=== PATIENT | female | born 1970 | race Caucasian/White ===

== ENCOUNTER 2016-07-21 23:11 | Emergency (ER) | payer MEDICARE, OTHER ==
--- NOTE | 2016-07-21 23:23 | ER Document Report ---
ED Medical Screen (RME) - General Stated Complaint: NAUSEA,VOMITING,ABDOMINAL PAIN Notes: 46-year-old female presents to ED via EMS for nausea vomiting no diarrhea for the past couple weeks. Went to [facility] and she was diagnosed with gastroparesis. She states she doesn't believe this diagnosis. - Related Data Allergies/Adverse Reactions: fentanyl [Fentanyl] Allergy (Verified 12/23/13 20:44) iodine [Iodine] Allergy (Verified 12/23/13 20:44) ketorolac tromethamine [From Toradol] Allergy (Verified 12/23/13 20:44) morphine [Morphine] Allergy (Verified 12/23/13 20:44) Past Medical History - Past Medical History Cardiac Medical History: Reports: Hx Hypercholesterolemia, Hx Hypertension Endocrine Medical History: Reports: Hx Diabetes Mellitus Type 2 Past Surgical History: Reports: Hx Cardiac Surgery - stents placed Oct 01 2013, Hx Tonsillectomy, Hx Tubal Ligation - Immunizations Hx Diphtheria, Pertussis, Tetanus Vaccination: Yes
== END 2016-07-22 00:10 | disposition left against medical advice (07) ==
LOC: ER 23:11
DX: Z53.21 Procedure and treatment not carried out due to patient leaving prior to being seen by health care provider (principal)

== ENCOUNTER → 2018-03-07 | Outpatient (CLI) | payer MEDICARE, OTHER ==
--- NOTE | 2018-03-07 15:53 | RADIOLOGY REPORT (SQ) ---
EXAM DESCRIPTION: CT LUMBAR SPINE WITHOUT COMPLETED DATE/TIME: 03/07/2018 3:35 pm REASON FOR STUDY: M96.1 POSTLAMINECTOMY SYNDROME, NOT ELSEWHERE CLASSIFIED M96.1 POSTLAMINECTOMY SY NDROME, NOT ELSEWHERE CLASSIFIED COMPARISON: None. TECHNIQUE: Axial images acquired through the lumbar spine without intravenous contrast. Images revi ewed with lung, soft tissue and bone windows. Reconstructed coronal and sagittal MPR images reviewed . All images stored on PACS. All CT scanners at this facility use dose modulation, iterative reconstruction, and/or weight based d osing when appropriate to reduce radiation dose to as low as reasonably achievable (ALARA). [facility]: Dose Right [facility]: CareDose [facility]: Dose Right [facility]: Teradose 4D [facility]: Impact Radius RADIATION DOSE: CT Rad equipment meets quality standard of care and radiation dose reduction techniq ues were employed. CTDIvol: 21.4 mGy. DLP: 634 mGy-cm. mGy. LIMITATIONS: Some metallic artifact from hardware. FINDINGS: SEGMENTATION: Normal. No transitional anatomy. ALIGNMENT: Normal. VERTEBRAL BODIES: No fractures. No dislocation. No acute findings. DISCS: Disc space narrowing with anterior osteophytes at L1-L2. Disc graft material at L3-L4, L4-L5, and L5-S1. No significant protrusions. Study limited by lack of intrathecal contrast. PEDICLES, TRANSVERSE PROCESSES: No fractures. No dislocation. No acute findings. FACETS, POSTERIOR ELEMENTS: No fractures. No dislocation. Multilevel laminectomy and posterior fusi on. HARDWARE: Posterior hardware and rods at L2, L 3, and L 4. Anterior hardware at L5-S1. Bony defects due to posterior hardware at L4 and L5 which has been removed. VISUALIZED RIBS: No fractures. SOFT TISSUES: No significant or acute finding in adjacent soft tissues. OTHER: No other significant finding. IMPRESSION: MULTILEVEL LAMINECTOMY AND SURGICAL CHANGES WITH HARDWARE DESCRIBED. DEGENERATIVE DI SC DISEASE AT L1-L2. NO APPARENT ACUTE FINDINGS. TECHNICAL DOCUMENTATION: JOB ID: [id number] Quality ID # [id number]: Final reports with documentation of one or more dose reduction techniques (e.g., Au tomated exposure control, adjustment of the mA and/or kV according to patient size, use of iterative reconstruction technique) 2010 [employer]- All Rights Reserved Reading location - IP/workstation name: [email or web address]
== END ==
LOC: RAD 15:08
PROVIDERS: ATTEND Physician Assistant
DX: M51.36 Other intervertebral disc degeneration, lumbar region (principal); M96.1 Postlaminectomy syndrome, not elsewhere classified
CPT/HCPCS: 72131